=== PATIENT | male | born 1950 | race Caucasian/White ===

== ENCOUNTER 2018-01-12 09:06 | Day surgery (SDC) | payer MEDICARE ==
[~2018-01-12] VITALS: Ht 175.3 cm; Wt 77.3 kg
[2018-01-12 10:01] VITALS: BP 176/92
[2018-01-12] MEDS ORDERED: LIDOCAINE-MPF 1%, 2ML ONE (10:03)
[2018-01-12] MEDS ORDERED: LACTATED RINGERS 1,000 ML IV SCH (10:04)
[2018-01-12] MEDS ORDERED: ATOR40TA78 PO (10:06)
[2018-01-12] MEDS ORDERED: FENO160T PO (10:06)
[2018-01-12] MEDS ORDERED: ASPI-496 PO (10:06)
[2018-01-12] MEDS ORDERED: CARV3.1212 PO (10:06)
[2018-01-12] MEDS ORDERED: FENTANYL PF 250 MCG/5ML ONE (12:21)
[2018-01-12] MEDS ORDERED: MIDAZOLAM 1 MG/ML, 2ML ONE (12:21)
[2018-01-12] MEDS ORDERED: LORazepam 2 MG/ML, 1ML IVPush PRN (14:00)
[2018-01-12] MEDS ORDERED: morphine SULFATE 10 MG/ML, 1ML IV PRN (14:00)
[2018-01-12] MEDS ORDERED: PROMETHAZINE 25 MG/ML, 1ML IV PRN (14:00)
[2018-01-12] MEDS ORDERED: MEPERIDINE/PF 25MG/0.5ML IVPush PRN (14:00)
[2018-01-12] MEDS ORDERED: ACETAMINOPHEN 325 MG TABLET PO PRN (14:00)
[2018-01-12] MEDS ORDERED: DIAZEPAM 5 MG/ML, 2ML IVPush PRN (14:00)
[2018-01-12] MEDS ORDERED: LABETALOL 5MG/ML, 20ML IV PRN (14:00)
[2018-01-12] MEDS ORDERED: PROMETHAZINE 12.5 MG SUPP PR PRN (14:00)
[2018-01-12] MEDS ORDERED: MIDAZOLAM 1 MG/ML, 2ML IV PRN (14:00)
[2018-01-12] MEDS ORDERED: EPHEDRINE 50 MG/ML, 1ML IVPush PRN (14:00)
[2018-01-12] MEDS ORDERED: OXYcodone 5 MG/5 ML ORAL.SOL UDC PO PRN (14:00)
[2018-01-12] MEDS ORDERED: ONDANSETRON 2MG/ML, 2ML IVPush PRN (14:00)
[2018-01-12] MEDS ORDERED: PROPOFOL 10 MG/ML, 20ML ONE (14:02)
[2018-01-12] MEDS ORDERED: SUCCINYLCHOLINE 20 MG/ML, 10ML ONE (14:02)
[2018-01-12] MEDS ORDERED: DEXAMETHASONE 4 MG/ML, 1ML ONE (14:02)
[2018-01-12] MEDS ORDERED: ONDANSETRON 2MG/ML, 2ML ONE (14:03)
[2018-01-12] MEDS ORDERED: OXYcodone 5 MG/5 ML ORAL.SOL UDC ONE (14:11)
[2018-01-12] MEDS ORDERED: FENTANYL PF 100 MCG/2ML ONE (14:11)
[2018-01-12] MEDS: FENTANYL PF 100 MCG/2ML IV PRN ×2 (14:17→14:29)
== END 2018-01-12 16:30 | disposition home or self-care (01) ==
LOC: OUT 09:06
PROVIDERS: ATTEND Urology
DX: N20.1 Calculus of ureter (principal); Z87.891 Personal history of nicotine dependence
CPT/HCPCS: 50590; J0330; J1100; J2250; J2405; J2704; J3010; J7120